=== PATIENT | female | born 1960 | race Caucasian/White ===

== ENCOUNTER 2020-07-26 11:56 | Outpatient (CLI) | payer OTHER, SELFPAY ==
--- NOTE | ~2020-07-26 | XR_ITS ---
XR wrist RT min 3V DATE: 07/26/2020 12:22 INDICATION: Bilateral wrist pain. Osteoarthritis. TECHNIQUE: 4 views COMPARISON: None FINDINGS: There is narrowing of the triscaphe joint. There is prominent narrowing and spurring at the first carpometacarpal joint. There is osteoarthritic change as well at the interphalangeal joint of the first digit Diffuse osteopenia. No fracture, dislocation, periosteal reaction or bone destruction. No chondrocalcinosis. No erosive c hanges are noted. IMPRESSION: Osteoarthritis, most prominent at the first carpal metacarpal joint, also close involving triscaphe and first digit interphalangeal joints Reviewed, dictated and finalized at location A. TITATIVE ANALYST IMPRESSION: Osteoarthritis, most prominent at the first carpal metacarpal joint , also close involving triscaphe and first digit interphalangeal joints
--- NOTE | ~2020-07-26 | XR_ITS ---
XR wrist LT min 3V DATE: 07/26/2020 12:22 INDICATION: Bilateral wrist pain. Osteoarthritis. TECHNIQUE: 4 views COMPARISON: None FINDINGS: There is diffuse osteopenia. There is severe joint space narrowing and spurring at the first carpometacarpal joint consistent with severe osteoarthritis. No fracture, dislocation, periosteal reaction or bone destruction or erosive change or chondrocalcino sis is detected. IMPRESSION: Severe osteoarthritis at the first carpal metacarpal joint Osteopenia Reviewed, dictated and finalized at location A. 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
== END 2020-07-26 11:57 | disposition home or self-care (01) ==
LOC: ANHIMG 11:59
PROVIDERS: PCP Internal Medicine; Visit Provider Plastic Surgery
DX: M19.031 Primary osteoarthritis, right wrist (principal); M19.032 Primary osteoarthritis, left wrist; M85.842 Other specified disorders of bone density and structure, left hand
CPT/HCPCS: 73110

== ENCOUNTER 2020-09-02 08:22 | Outpatient (CLI) | payer OTHER, SELFPAY ==
--- NOTE | 2020-09-02 08:27 | ECG_ITS ---
Measurements Intervals Desmet Rate: 73 P: 41 AR: 161 QRS: -28 QRSD: 89 T: 18 QT: 394 QTc: 435 Interpretive Statements SINUS RHYTHM BORDERLINE R WAVE PROGRESSION, ANTERIOR LEADS BORDERLINE T WAVE ABNORMALITY- INFERIOR LEADS BASELINE ARTIFACT- I, III, AVR, AVL, AVF, V1-V6 BORDERLINE ECG Electronically Signed On 09-02-2020 8:41:03 CDT by Raymundo Serrato D.O.
[2020-09-02 08:59] LABS: Anion Gap 9 mmol/L (8-16); Blood Urea Nitrogen 15 mg/dL (7-17); Calcium 9.4 mg/dL (8.4-10.2); Carbon Dioxide 30 mmol/L (22-30); Chloride 104 mmol/L (98-107); Estimated Glomerular Filt Rate 57; Glucose 208 mg/dL (65-105); Potassium 3.8 mmol/L (3.4-5.0); Sodium 143 mmol/L (137-145)
== END 2020-09-02 08:23 | disposition home or self-care (01) ==
LOC: ANHSURGERY 08:25
PROVIDERS: Anesthesiology; PCP Internal Medicine; Visit Provider Plastic Surgery
DX: Z01.818 Encounter for other preprocedural examination (principal); I10 Essential (primary) hypertension; Z51.81 Encounter for therapeutic drug level monitoring; Z79.899 Other long term (current) drug therapy
CPT/HCPCS: 36415; 80048; 93005

== ENCOUNTER → 2020-09-06 00:20 | Outpatient (CLI) | payer OTHER, SELFPAY ==
[2020-09-06 19:29] LABS: SARS-CoV-2 RNA PCR Negative
== END ==
PROVIDERS: PCP Internal Medicine; Visit Provider Plastic Surgery
DX: Z01.812 Encounter for preprocedural laboratory examination (principal); Z20.822 Contact with and (suspected) exposure to COVID-19
CPT/HCPCS: C9803; U0003; U0005

== ENCOUNTER 2020-09-09 00:18 | Day surgery (SDC) | payer OTHER, SELFPAY ==
[2020-08-25 15:18] VITALS: BMI 30.2
--- NOTE | 2020-09-08 14:35 | WPDANESEPPF ---
Anes - Initial Pre Proc Eval Procedure: Operation Date: 09/09/20 07:30 Proposed Procedures p Right Trapezium Resection Arthroplasty with Arthrex Internal Brace - Ga Hyde MD Date/Time: 09/08/20 14:35 Surgeon: Ga Hyde MD Pre Op Diagnosis: right basal joint OA Patient Data Age: 60 Gender: F Height: 5 ft 9 in Weight: 93 kg Allergies Allergy/AdvReac Type Severity Reaction Status Date / Time No Known Allergies Allergy Unknown NONE Verified 09/09/20 06:26 Home Medications Medication Instructions Recorded Confirmed Type canagliflozin 100 mg tablet 100 mg PO HS 06/10/19 09/09/20 History metformin 1,000 mg tablet 1,000 mg PO BID 06/10/19 09/09/20 History rosuvastatin 5 mg tablet 5 mg PO HS 06/10/19 09/09/20 History ergocalciferol (vitamin D2) 1,250 1,250 mcg PO WEEKLY #13 cap 05/02/20 09/09/20 Rx mcg (50,000 unit) capsule gabapentin 300 mg PO HS 08/25/20 09/09/20 History losartan-hydrochlorothiazide 1 tablet PO HS 08/25/20 09/09/20 History multivitamin 1 tablet PO HS 08/25/20 09/09/20 History lorazepam 0.5 mg tablet 0.5 mg PO BID PRN #30 tablet 09/03/20 09/09/20 Rx Patient hx anesthesia problems: none Family hx anesthesia problems: none PMFSH Past Medical History Medical History Anxiety Diabetes Essential (primary) hypertension Obesity (BMI 30.0-34.9) Pure hypercholesterolemia, unspecified Thumb pain Type 2 diabetes mellitus without complications Family History Family History Father Patient's father is in good health Mother Family history of osteoporosis Depression Family history of cataracts Asthma Family history of chronic obstructive pulmonary disease Sibling Depression Family history of bipolar disorder Family history of diabetes mellitus in first degree relative Other Cerebrovascular accident Diabetes mellitus Family history of alcoholism Family history of arthritis Family history of cardiovascular disease Hypertension Social History Social History Years smoked: 3 Smoking status: Former smoker Tobacco type: cigarettes Second hand tobacco smoke exposure: No Smoking end date: 06/04/80 Alcohol intake: never Substance use: never Substance use type: does not use Living arrangements: with family Spiritual care concerns: No Anes - Eval Final PreProcedure Day of Procedure 09/08/20 14:35 Patient weight: overweight Heart: regular rate and rhythm Lungs: clear to auscultation Airway: Mallampati scale class II Neurological: alert and oriented Last oral intake: >/= 8 hours ASA classification: III Emergent: no Anesthetic plan: proceed Anesthesia type and monitoring: general LMA and standard monitoring Informed Consent: The patient's anesthetic plan and its attendant risks and benefits were discussed with the patient/family/POA. Questions were solicited and answers provided to the satisfaction of the patient/family/POA.
[2020-09-09] VITALS (8 sets, daily range): BP systolic 95–109; BP diastolic 58–71; PULSE 70–75; RESP 10–16; TEMP 35.9–36.3; O2SAT 92–97
--- NOTE | ~2020-09-09 | XR_ITS ---
EXAMINATION: surgery orthopedic EXAM DATE: 09/09/2020 09:36 INDICATION: Advanced right 1st carpometacarpal osteoarthritis. Right trapezium resection. TECHNIQUE: Fluoroscopy used during right trapezium resection performed by Dr. Ga Hyde MD. Radiologist was not present for the imaging or procedure. Total fluoroscopic time of 0.4 minutes. A total of 3 images obtained for the exam. The DAP for this procedure was 0.006 mGym2. FINDINGS: Images demonstrate right trapezium resection. Correlate with procedure note. IMPRESSION: Fluoroscopy used during right trapezium resection. Reviewed, dictated and finalized at location A.
[2020-09-09] MEDS: LACTATED RINGERS 1,000 ML 30 ML IV CONT ×2 (06:40→09:28)
--- NOTE | 2020-09-09 06:43 | WPDANESEPP ---
Anes - Eval Pre Procedure Procedure: Operation Date: 09/09/20 07:30 Proposed Procedures p Right Trapezium Resection Arthroplasty with Arthrex Internal Brace - Ga Hyde MD Date/Time: 09/09/20 06:43 Pre Op Diagnosis: right basal joint OA Patient Data Age: 60 Gender: F Height: 5 ft 9 in Weight: 93 kg Allergies Allergy/AdvReac Type Severity Reaction Status Date / Time No Known Allergies Allergy Unknown NONE Verified 09/09/20 06:26 Home Medications Medication Instructions Recorded Confirmed Type canagliflozin 100 mg tablet 100 mg PO HS 06/10/19 09/09/20 History metformin 1,000 mg tablet 1,000 mg PO BID 06/10/19 09/09/20 History rosuvastatin 5 mg tablet 5 mg PO HS 06/10/19 09/09/20 History ergocalciferol (vitamin D2) 1,250 1,250 mcg PO WEEKLY #13 cap 05/02/20 09/09/20 Rx mcg (50,000 unit) capsule gabapentin 300 mg PO HS 08/25/20 09/09/20 History losartan-hydrochlorothiazide 1 tablet PO HS 08/25/20 09/09/20 History multivitamin 1 tablet PO HS 08/25/20 09/09/20 History lorazepam 0.5 mg tablet 0.5 mg PO BID PRN #30 tablet 09/03/20 09/09/20 Rx Patient hx anesthesia problems: none Family hx anesthesia problems: none PMFSH Past Medical History Medical History Anxiety Diabetes Essential (primary) hypertension Obesity (BMI 30.0-34.9) Pure hypercholesterolemia, unspecified Thumb pain Type 2 diabetes mellitus without complications Family History Family History Father Patient's father is in good health Mother Family history of osteoporosis Depression Family history of cataracts Asthma Family history of chronic obstructive pulmonary disease Sibling Depression Family history of bipolar disorder Family history of diabetes mellitus in first degree relative Other Cerebrovascular accident Diabetes mellitus Family history of alcoholism Family history of arthritis Family history of cardiovascular disease Hypertension Social History Social History Years smoked: 3 Smoking status: Former smoker Tobacco type: cigarettes Second hand tobacco smoke exposure: No Smoking end date: 06/04/80 Alcohol intake: never Substance use: never Substance use type: does not use Living arrangements: with family Spiritual care concerns: No Comments VR 73 SINUS RHYTHM BORDERLINE R WAVE PROGRESSION, ANTERIOR LEADS BORDERLINE T WAVE ABNORMALITY- INFERIOR LEADS BASELINE ARTIFACT- I, III, AVR, AVL, AVF, V1-V6 BORDERLINE ECG Exam Day of Procedure 09/09/20 06:43
[2020-09-09 06:48] LABS: Glucose Point of Care 143 (65-105)
--- NOTE | 2020-09-09 07:15 | WPDHPUPDATE1 ---
History and Physical Update Update Date/Time: 09/09/20 07:15 History and Physical has been reviewed, including an updated exam of the patient. There are NO changes in the patient's condition. Risks, benefits, and alternatives have been discussed and questions answered. Patient agrees to proceed with procedure.
[2020-09-09] MEDS: ceFAZolin 2 GM/D5W 50 ML 2 GM/50 ML BAG IVPB (07:29)
[2020-09-09] MEDS: LIDO 1%/EPINEPHRINE/PF 1:200,000 30 ML VIAL XX (09:10)
[2020-09-09] MEDS: BUPIVACAINE/EPINEPHRINE 0.5% 30 ML VIAL INFILTRATE (09:11)
--- NOTE | 2020-09-09 09:51 | P.OPB_ITS ---
Procedure Note - Brief Procedure Note - Brief Date of procedure: 09/09/20 Pre-op diagnosis: right basal joint OA Post-op diagnosis: same Procedure performed: Trapezium resection arthroplasty with InternalBrace. Implants: InternalBrace. Anesthesia: GETA Surgeon: Ga Hyde MD National Business Director: Mark Estimated blood loss (mL): 5 Tourniquet time (min): 74 Drains: No Packing: No Pathology: none sent Complications: No immediate complications Condition: stable Disposition: PACU
--- NOTE | 2020-09-09 09:54 | P.OP_ITS ---
Procedure Note - Detailed Date of procedure: 09/09/20 Pre-op diagnosis: right basal joint OA Post-op diagnosis: same Procedure performed: Right trapezium resection arthroplasty with Arthrex InternalBrace. Description of procedure: The right thumb was marked as the patient waited in the holding area. She was taken to the operating room and placed supine on the operating table. A time-out was held and confirmed. She was given general endo tracheal anesthesia. The right upper extremity was prepped and draped in the usual fashion. The site on the thumb was marked for the incision and locally infiltrated with 1% lidocaine with epinephrine. The extremity was exsanguinated and the tourniquet inflated to 250 mmHg. The incision was made as marked and dissection was carried through the subcutaneous tissue. The large branch of the superficial branch of the radial nerve was identified this was retained with a quarter-inch Brian drain out of harm's way. The joint capsule was incised with a knife the extensor pollicis brevis and the abductor pollicis longus. The capsule was entered and the margins of the metacarpal were exposed. The trapezium was exposed with sharp dissection as well. It was then removed piecemeal with rongeur.. C-arm images were taken to document the resection. The Arthrex internal brace kit was brought onto the operating table. The anchor sites were drilled with the C-wire and the auger. The anchor at the metacarpal was applied 1st without difficulty. Second anchor at the radial base of the 1st metacarpal was applied with the thumb abducted and distracted.. There were no complications performing this. The capsule was repaired with 3-0 Ethibond the tourniquet was released there was minimal bleeding. The Brian drain was removed and the skin was closed with a running intradermal 3-0 Monocryl suture. A thumb spica splint was applied. The patient is being discharged home with instructions in wound care and follow-up. She has a prescription for hydrocodone . Anesthesia: GETA Surgeon: Ga Hyde MD Field Pipelines Supervisor: Mark Estimated blood loss (mL): 5 Tourniquet time (min): 74 Drains: No Packing: No Pathology: none sent Complications: No immediate complications Condition: stable Disposition: PACU
[2020-09-09 09:55] LABS: Glucose Point of Care 139 (65-105)
[2020-09-09] MEDS: oxyCODONE HCL (*CRX) 5 MG TAB IR PO (10:46)
== END 2020-09-09 11:35 | disposition home or self-care (01) ==
PROVIDERS: PCP Internal Medicine; Visit Provider Plastic Surgery
PROC: (CPT 25447; principal; 2020-09-09 07:30)
DX: M18.11 Unilateral primary osteoarthritis of first carpometacarpal joint, right hand (principal); E11.9 Type 2 diabetes mellitus without complications; I10 Essential (primary) hypertension; E78.00 Pure hypercholesterolemia, unspecified; F41.9 Anxiety disorder, unspecified; E66.9 Obesity, unspecified; Z68.29 Body mass index [BMI] 29.0-29.9, adult; Z79.84 Long term (current) use of oral hypoglycemic drugs; Z87.891 Personal history of nicotine dependence
CPT/HCPCS: 25447; 36415; 80048; 82948; 93005; A9270; C9803; J0690; J1100; J2250; J2405; J2704; J3010; J7120; U0003; U0005

== ENCOUNTER 2020-10-21 09:00 | Outpatient (RCR) | payer OTHER, SELFPAY ==
--- NOTE | 2020-09-24 10:13 | OTOPEVAL ---
OCCUPATIONAL THERAPY INITIAL EVALUATION REPORT 09/24/20 Thank you for referring Parul Farmer to [facility].? The patient is scheduled to be seen for therapy?2x/week for 4 weeks. Please review, sign, date and return this plan of care ROBERTO. I agree with and certify that the following plan of care is medically necessary. Referring Physician Date Referring Provider: Ga Hyde MD *OT Outpatient Evaluation Start: 09/24/20 09:13 Therapy Assessment Status Assessment Status Assessment Status Evaluation Outpatient Past Medical History Past Medical History Source of Past Medical History Recalled from Previous Visit, Confirmed with Patient/Family Neurological History Hx Neurological Disorders No Significant History Cardiovascular History Hx Hypercholesterolemia Yes Hx Hypertension Yes Respiratory History Hx Respiratory Disorders No Significant History Gastrointestinal History Hx Cholecystectomy Yes Genitourinary History Hx Genitourinary Disorders No Significant History Musculoskeletal History Hx Arthritis Yes: OSTEOARTHRITIS BILAT THUMBS Hx Other Musculoskeletal Disorders Yes: RT THUMB PAIN CURRENTLY Hematological History Hx Hematological Disorders No Significant History Endocrine History Hx Diabetes Yes HEENT History Hx HEENT Disorders No Significant History Integumentary History Hx Skin Disorders No Significant History Reproductive History Hx Hysterectomy Yes Psychosocial History Hx Psychiatric Disorders No Significant History Pain History History of Any Previous or Ongoing No Significant History Instance of Pain Anesthesia History Hx Anesthesia Reactions No Significant History Evaluation Information Problem Diagnosis (R) trapezium resection arthroplasty with Internal Brace Onset 09/09/20 Cause CMC OA Subjective Information Patient has been wearing the Query Text:As Reported By Patient/ splint they donned on her Family after surgery since her surgery. 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 She has been having help from her to clasp her bra, otherwise she has returned to being independent with ADLs. He is completing heavier household work at this time. 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
--- NOTE | 2020-10-21 09:29 | OTOPEVAL ---
OCCUPATIONAL THERAPY RE-EVALUATION AND D/C SUMMARY 10/21/20 Patient presents today for re-evaluation after 4 weeks of therapy. Initially she was scheduled for 2x/week and was dropped down to 1x/week as she was making such excellent progress. She had no pain throughout therapy and improved back to functional ROM very quickly. She is currently independent with special education itinerant teacher, pinch, and wrist strengthening HEP, has returned to normal functional use of the hand, and is ready for discharge. Thank you for referring Parul Farmer to [facility].? Please review, sign, date and return this D/C Summary ROBERTO. I agree with and certify that the following plan of care is medically necessary. Referring Physician Date Referring Provider: Ga Hyde MD *OT Outpatient Re-Evaluation Start: 09/24/20 09:13 Evaluation Information Problem Diagnosis (R) trapezium resection arthroplasty with Internal Brace Onset 09/09/20 Cause CMC OA Subjective Information Patient reports returning to Query Text:As Reported By Patient/ normal functional use of the Family right hand for ADLs and household tasks. She no longer has her husbands help with heavier cleaning tasks. She has been completing special education itinerant teacher, pinch, and wrist strengthening without difficulties. 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 Pain Assessment Timing of Pain Assessment Timing of Pain Assessment Assessment Self Report Self Report Pain Level 0 Pain Score Pain Score 0: Self Report Additional Pain Score Comments No pain. Has had no pain since surgery. Upper Extremity Range of Motion Wrist Range of Motion Right Reason Not Measured WNL/Right Finger Range of Motion Right Reason Not Measured WNL/Right Thumb Range of Motion Right Thumb MCP Flexion - Active 45 Thumb IP Flexion - Active 75 Thumb CMC Radial Abduction - Active 50 Thumb CMC Palmar Abduction - Active 55 Opposition to 5th Digit Base 0 Thumb Range of Motion Comments MCP flexion improved from 40* IP flexion improved from 75* CMC radial abd improved from 40* CMC palmar abd improved from 55* Hand Energy Systems Engineer/Pinch Strength Assessment Hand Right Energy Systems Engineer Strength (lbs) 55.33 Lateral Pinch Strength (lbs) 4 Palmar Pinch Strength (lbs) 3.66 Tip Pinch Strength (lbs) 4 Hand Energy Systems Engineer/Pinch Strength Comments Patient is independent with special education itinerant teacher/pinch strengthening HEP. OT Clinical Summary OT Clinical Summary Patient presents today for re-
== END 2020-10-21 11:53 | disposition home or self-care (01) ==
LOC: ANHOT 09:00
PROVIDERS: PCP Internal Medicine; Referring Provider Plastic Surgery; Visit Provider Plastic Surgery
DX: Z48.89 Encounter for other specified surgical aftercare (principal)
CPT/HCPCS: 97018; 97110; 97140; 97165

== ENCOUNTER 2021-02-25 11:30 | Outpatient (CLI) | payer OTHER, SELFPAY ==
[2021-02-25 12:06] LABS: Anion Gap 11 mmol/L (8-16); Blood Urea Nitrogen 12 mg/dL (7-17); Calcium 9.6 mg/dL (8.4-10.2); Carbon Dioxide 26 mmol/L (22-30); Chloride 101 mmol/L (98-107); Estimated Glomerular Filt Rate > 60; Glucose 107 mg/dL (65-110); Potassium 3.8 mmol/L (3.4-5.0); Sodium 138 mmol/L (137-145)
== END 2021-02-25 11:31 | disposition home or self-care (01) ==
LOC: ANHSURGERY 11:33
PROVIDERS: Anesthesiology; PCP Internal Medicine; Visit Provider Plastic Surgery
DX: E11.9 Type 2 diabetes mellitus without complications (principal); Z01.818 Encounter for other preprocedural examination
CPT/HCPCS: 36415; 80048

== ENCOUNTER 2021-03-02 00:25 | Day surgery (SDC) | payer OTHER, SELFPAY ==
[2021-02-22 11:17] VITALS: BMI 29.5
[2021-03-02] VITALS (11 sets, daily range): BP systolic 92–111; BP diastolic 61–72; PULSE 61–82; RESP 12–16; TEMP 36.1; O2SAT 95–100; BMI 29.2
--- NOTE | ~2021-03-02 | XR_ITS ---
EXAMINATION: XR surgery orthopedic DATE: 03/02/2021 12:53 INDICATION: Left thumb trapezium resection arthroplasty TECHNIQUE: 2 fluoroscopic images of the left wrist and carpus were obtained during procedure performe d by Dr. Hyde. Radiologist was not present for the imaging or procedure. The amount of fluoroscopy t renee used during this procedure was 0.4 minutes. COMPARISON: Left wrist radiographs dated 07/26/2020 FINDINGS: Images demonstrate resection of the trapezium for first carpal carpal suspension arthroplas ty. On the second image there is expected gas at the resection bed with distal retraction of the thum b. A curvilinear opacity potentially for arthritics internal bracing can be seen projecting over the base of the first metacarpal. No fractures. Remaining joint spaces appear relatively preserved. IMPRESSION: 1. Fluoroscopy utilized during a left thumb trapezium resection arthroplasty. See procedure note for further detail. Reviewed, dictated and finalized at location A. IMPRESSION: 1. Fluoroscopy utilized during a left thumb trapezium resection arthroplasty. S ee procedure note for further detail.
--- NOTE | 2021-03-02 07:02 | WPDHPUPDATE1 ---
History and Physical Update Update Date/Time: 03/02/21 07:02 History and Physical has been reviewed, including an updated exam of the patient. There are NO changes in the patient's condition. Risks, benefits, and alternatives have been discussed and questions answered. Patient agrees to proceed with procedure.
--- NOTE | 2021-03-02 09:38 | WPDANESEPPF ---
Anes - Initial Pre Proc Eval Procedure: Operation Date: 03/02/21 11:15 Proposed Procedures p Left Trapezium Resection Arthroplasty with Arthrex Internal Brace - Ga Hyde MD Date/Time: 03/02/21 09:38 Surgeon: Ga Hyde MD Pre Op Diagnosis: Left Basal Joint Osteoarthritis Patient Data Age: 60 Gender: F Height: 1.75 m Weight: 90.72 kg Allergies Allergy/AdvReac Type Severity Reaction Status Date / Time No Known Allergies Allergy Unknown NONE Verified 02/22/21 11:15 Home Medications Medication Instructions Recorded Confirmed Type metformin 1,000 mg tablet 1,000 mg PO BID 06/10/19 02/22/21 History rosuvastatin 5 mg tablet 5 mg PO HS 06/10/19 02/22/21 History losartan-hydrochlorothiazide 1 tablet PO HS 08/25/20 02/22/21 History multivitamin 1 tablet PO HS 08/25/20 02/22/21 History ergocalciferol (vitamin D2) 1,250 1,250 mcg PO WEEKLY #13 cap 11/25/20 02/22/21 Rx mcg (50,000 unit) capsule gabapentin 300 mg capsule 300 mg PO HS #90 cap 12/11/20 02/22/21 Rx sertraline 25 mg PO HS 02/22/21 02/22/21 History lorazepam 0.5 mg tablet 0.5 mg PO BID PRN #30 tablet 02/24/21 Rx Patient hx anesthesia problems: none Family hx anesthesia problems: none Results Review: All pre-operative results and documents have been reviewed as part of the pre-operative evaluation. [facility] Past Medical History Medical History Anxiety Diabetes Essential (primary) hypertension Obesity (BMI 30.0-34.9) Pure hypercholesterolemia, unspecified Thumb pain Type 2 diabetes mellitus without complications Family History Family History Father Patient's father is in good health Mother Family history of osteoporosis Depression Family history of cataracts Asthma Family history of chronic obstructive pulmonary disease Sibling Depression Family history of bipolar disorder Family history of diabetes mellitus in first degree relative Other Cerebrovascular accident Diabetes mellitus Family history of alcoholism Family history of arthritis Family history of cardiovascular disease Hypertension Social History Social History Years smoked: 3 Smoking status: Former smoker Tobacco type: cigarettes Second hand tobacco smoke exposure: No Smoking end date: 06/04/80 Alcohol intake: never Substance use: never Substance use type: does not use Living arrangements: with family Spiritual care concerns: No Anes - Eval Final PreProcedure Day of Procedure 03/02/21 09:38 Patient weight: overweight Heart: regular rate and rhythm Lungs: clear to auscultation Airway: Mallampati scale class II Neurological: alert and oriented Last oral intake: >/= 8 hours ASA classification: III Emergent: no Anesthetic plan: proceed Anesthesia type and monitoring: general LMA and standard monitoring Results Review: All pre-operative results and documents have been reviewed as part of the pre-operative evaluation. Informed Consent: The patient's anesthetic plan and its attendant risks and benefits were discussed with the patient/family/POA. Questions were solicited and answers provided to the satisfaction of the patient/family/POA.
[2021-03-02] MEDS: LACTATED RINGERS 1,000 ML 30 ML IV CONT ×2 (09:50→13:10)
[2021-03-02] MEDS: ACETAMINOPHEN 500 MG TABLET 1000 MG PO (09:57)
[2021-03-02 10:07] LABS: Glucose Point of Care 109 mg/dl (65-105)
[2021-03-02] MEDS: ceFAZolin 2 GM/D5W 50 ML 2 GM/50 ML BAG IVPB (11:18)
[2021-03-02] MEDS: LIDO 1%/EPINEPHRINE 1:100,000 50 ML VIAL 10 ML INFILTRATE (11:44)
[2021-03-02 13:14] LABS: Glucose Point of Care 146 mg/dl (65-105)
--- NOTE | 2021-03-02 13:23 | W.PM.PROC2 ---
Procedure Note - Detailed Date of Procedure 03/02/21 Pre-op Diagnosis Left Basal Joint Osteoarthritis Post-op Diagnosis same Procedure Performed Left trapezium resection arthroplasty with Arthrex internal brace Surgeon Ga Hyde MD Project Development Coordinator Marcus Anesthesia general Description of Procedure The left basal joint site was marked on the patient's hand in the holding area. She was then taken to the operating room where she was placed supine on the operating table. A time-out was held confirmed. She was given general anesthesia and the left upper extremity was prepped and draped in the usual fashion. The site was marked for the incision and locally infiltrated with 1% lidocaine with epinephrine. The tourniquet was inflated to 250 mmHg. The incision was made as marked curving palmar at the basal joint. Skin flaps were carefully elevated. The large cutaneous nerve was retained palmarly with a vessel loop. The interspace between the EPL and the EPB was incised across the trapezial metacarpal joint. The trapezium was dissected with sharp and blunt dissection the radial artery branch was not violated. The trapezium was divided with an osteotome and taken out piecemeal with a rongeur. The flexor carpi radialis was not harmed. The image intensifier provided images indicating adequate resection of the trapezium. The K-wire from the Arthrex set was inserted diagonally across the base of the 2nd metacarpal. This was imaged and appeared to be satisfactory. The drill guide was placed over that and the swivel lock opening made. The swivel lock was placed in that hole and was stable The radial base of the 1st metacarpal was exposed and a 2nd swivel lock hole was made through the thumb was appropriately position and the swivel lock placed over the suture tape. This was also stable. The thumb appeared to be in excellent position. C-arm images were made with the thumb distally extracted and Proximally compressed. The subcutaneous tissue was repaired with inter erupted 4-0 Vicryl suture and the skin was closed with a running intradermal 4-0 Vicryl. The site was not really infiltrated Marcaine. She had been given 1000 mg a acetaminophen preop orally and 2 g of IV Ancef the soft bandage with thumb spica splint was applied. She is discharged from the operating room stable condition she will have a prescription for hydrocodone 5/325 number 10 Implants Arthrex swivel lock and suture tape Estimated Blood Loss 0 Tourniquet Time 60 Drains No Packing No Pathology none sent Complications No immediate complications Condition stable Disposition PACU
[2021-03-02] MEDS: fentaNYL CITRATE INJ (*CRX) 100 MCG/2 ML VIAL 25 MCG IV PUSH ×4 (13:36→14:10)
== END 2021-03-02 15:14 | disposition home or self-care (01) ==
PROVIDERS: PCP Internal Medicine; Visit Provider Plastic Surgery
PROC: (CPT 25447; principal; 2021-03-02 11:15)
DX: M18.12 Unilateral primary osteoarthritis of first carpometacarpal joint, left hand (principal); E11.9 Type 2 diabetes mellitus without complications; I10 Essential (primary) hypertension; E78.00 Pure hypercholesterolemia, unspecified; F41.9 Anxiety disorder, unspecified; Z79.84 Long term (current) use of oral hypoglycemic drugs; Z87.891 Personal history of nicotine dependence
CPT/HCPCS: 25447; 36415; 80048; 82948; A9270; C1713; J0690; J1100; J2250; J2405; J2704; J3010; J7120

== ENCOUNTER 2021-04-06 07:30 | Outpatient (RCR) | payer OTHER, SELFPAY ==
--- NOTE | 2021-03-10 08:35 | OTOPEVAL ---
OCCUPATONAL THERAPY INITIAL EVALUATION REPORT 03/10/21 Thank you for referring Parul Farmer to [facility] [place] [facility] [place] The patient is scheduled to be seen for therapy? 1x/week for 5 weeks. Please review, sign, date and return this plan of care ROBERTO. I agree with and certify that the following plan of care is medically necessary. Referring Physician Date Referring Provider: Ga Hyde MD *OT Outpatient Evaluation Start: 03/10/21 07:29 Therapy Assessment Status Assessment Status Assessment Status Evaluation Outpatient Past Medical History Neurological History Hx Neurological Disorders No Significant History Cardiovascular History Hx Hypercholesterolemia Yes Hx Hypertension Yes Respiratory History Hx Respiratory Disorders No Significant History Gastrointestinal History Hx Cholecystectomy Yes Genitourinary History Hx Genitourinary Disorders No Significant History Musculoskeletal History Hx Orthopedic Surgery Yes: RT THUMB Hematological History Hx Hematological Disorders No Significant History Endocrine History Hx Diabetes Yes HEENT History Hx HEENT Disorders No Significant History Integumentary History Hx Skin Disorders No Significant History Psychosocial History Hx Psychiatric Disorders No Significant History Pain History History of Any Previous or Ongoing No Significant History Instance of Pain Anesthesia History Hx Anesthesia Reactions No Significant History Other History Hx Other Surgeries Yes: LIPOMA X2 REMOVED FROM NECK Evaluation Information Problem Diagnosis s/p left trapezium resection with Arthrex Internal brace Onset 03/02/21 Subjective Information Patient reports her hand has Query Text:As Reported By Patient/ had minimal to no pain since Family surgery. She has been unable to complete any pinching/ gripping tasks such as clasping her bra since surgery . Her helps her as needed. She is still working and driving without difficulty . 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
--- NOTE | 2021-03-30 09:37 | PCOTNOTE ---
Patient called & cancelled scheduled appointment this date.
--- NOTE | 2021-04-06 08:06 | OTOPEVAL ---
OCCUPATIONAL THERAPY RE-EVALUATION AND DISCHARGE SUMMARY 04/06/21 Parul presents today, 5 weeks following left CMC arthroplasty. She has returned to normal ROM and has no pain with use. She is independent with strengthening and ready for discharge. D/C today with goals met. Thank you for referring Parul Farmer to [facility] [place]. Please review, sign, date and return this D/C Note ROBERTO. I agree with and certify that the following plan of care is medically necessary. Referring Physician Date Referring Provider: Ga Hyde MD *OT Outpatient Re-Evaluation Start: 03/10/21 07:29 Problem Diagnosis s/p left trapezium resection with Arthrex Internal brace Onset 03/02/21 Subjective Information Patient reports she is back to Query Text:As Reported By Patient/ normal functioning with the Family right hand. Reports no functional limitations and no pain. Pain Assessment Timing of Pain Assessment Timing of Pain Assessment Re-assessment Pain Scale Pain Scale Used Numeric (1 - 10) Self Report Pain Assessment Left Hand(s) Reported Pain Level 0 Lowest Pain Intensity 0 Greatest Pain Intensity 0 Pain Score Pain Score 0: Self Report Upper Extremity Range of Motion Wrist Range of Motion Left Wrist Flexion - Active 75 Wrist Extension - Active 75 Wrist Radial Deviation - Active 20 Wrist Ulnar Deviation - Active 35 Finger Range of Motion Left Reason Not Measured WNL/Left Thumb Range of Motion Left Thumb MCP Flexion - Active 45 Thumb IP Flexion - Active 60 Opposition to 5th Digit Base 0 Thumb Range of Motion Comments Thumb ROM has returned to normal limits. 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 OT Clinical Summary Clinical Summary Protocol: OTEVCODES OT Clinical Summary Parul presents today, 5 weeks following left CMC arthroplasty. She has returned to normal ROM and has no pain with use. She is independent with strengthening and ready for discharge. D/C today with
== END 2021-04-06 12:00 | disposition home or self-care (01) ==
LOC: ANHOT 07:30
PROVIDERS: PCP Internal Medicine; Visit Provider Plastic Surgery
DX: Z48.89 Encounter for other specified surgical aftercare (principal)
CPT/HCPCS: 97110; 97165; L3806

== ENCOUNTER → 2022-01-05 15:27 | Outpatient (CLI) | payer OTHER, SELFPAY ==
--- NOTE | ~2022-01-05 | CT_ITS ---
EXAMINATION: CT brain wo con DATE: 01/05/2022 15:41 INDICATION: Vertigo, memory loss, lack of coordination. TECHNIQUE: Computed tomography (CT) of the head was performed without intravenous contrast. The mA wa s adjusted according to patient size. Iterative reconstruction technique was employed. Exam dose: 59 9.57 mGy-cm total exam DLP. COMPARISON: None FINDINGS: Cerebral atherosclerosis is noted including some calcification of the carotid siphon internal investigator al carotid arteries and prominent left vertebral artery calcification. Mild bilateral basal ganglia calcification. There is nonspecific diminished attenuation of the cerebral white matter, likely due to chronic small vessel ischemic changes. No intracranial mass lesion or hemorrhage or cerebrovascular accident is detected. No midline shift o r mass effect. Normal ventricular size. No subdural or epidural hematoma. No fracture or bone destruction of the cranial vault. The paranasal sinuses and mastoid air cells are normally developed and aerated. IMPRESSION: Cerebral atherosclerosis and chronic small vessel ischemic changes of the cerebral white matter No other significant intracranial abnormality Reviewed, dictated and finalized at [facility]. Reviewed, dictated and finalized at [facility].
== END ==
PROVIDERS: PCP Internal Medicine; Visit Provider Internal Medicine
DX: R41.3 Other amnesia (principal); R26.9 Unspecified abnormalities of gait and mobility; I67.2 Cerebral atherosclerosis
CPT/HCPCS: 70450

== ENCOUNTER 2022-01-18 13:49 | Outpatient (CLI) | payer OTHER, SELFPAY ==
[2022-01-18 14:57] LABS: Appearance Urine Slightly Cloudy (Clear); Bilirubin Urine Negative (Negative); Color Urine Orange (Yellow); Glucose Urine UA Trace mg/dL (Negative); Ketones Urine Negative (Negative); Leukocyte Esterase Ur 3+ LEU/UL (Negative); Nitrate Urine Positive (Negative); Protein Urine 1+ mg/dL (Negative); pH Urine 5.5 (5.0-9.0)
[2022-01-18 15:01] LABS: Add Urine Microscopic? YES; Blood Urine Trace-Intact (Negative)
[2022-01-18 15:10] LABS: Bacteria Urine Trace /hpf; Mucus Urine Rare /lpf; RBC Urine 0-2 /hpf (0-2); Squamous Epithelial Cell Urine Occasional /hpf (Few); WBC Clumps Urine Present /HPF; WBC Urine >75 /hpf
== END 2022-01-18 13:50 | disposition home or self-care (01) ==
LOC: ANHLAB 13:50
PROVIDERS: PCP Internal Medicine; Visit Provider Internal Medicine
DX: R30.0 Dysuria (principal)
CPT/HCPCS: 81001; 87077; 87086; 87186

== ENCOUNTER 2022-01-31 07:27 | Outpatient (CLI) | payer OTHER, SELFPAY ==
--- NOTE | 2022-02-28 16:51 | WPDHOMESLEEP ---
Sleep Study - Home Unattended Date of Study: 01/31/22 Ordering Provider: Milton Georges DO Interpreting Provider: Kim Corona DO Home Sleep Study Type: Watch PAT Height: 1.78 m Weight: 90.718 kg Body Mass Index: 28.7 Neck Circumference (inches): 14 Breaks: 2 Reason for Sleep Study Unrefreshing sleep, multiple nighttime awakenings Sleep History The patient is a 61-year-old female with hypertension, hyperlipidemia, diabetes and anxiety that had a sleep study ordered by her primary care physician for evaluation of sleep apnea. She rarely awakens from sleep short of breath. She occasionally awakens at night with heartburn, belching or cough. She frequently snores loud enough that others complain he constantly has trouble sleeping when she has a cold. She rarely wakes up gasping for air throughout the night. She rarely has breathing problems at night observed by herself or others. He occasionally sweats excessively at night. She rarely has heart palpitations or irregular heartbeats during the night. He occasionally falls asleep during the day but never while driving. She denies cataplexy. She denies having trouble at school or work due to sleepiness. She occasionally feels unable to move while waking up or falling asleep. She frequently experiences vivid dreamlike scenes upon awakening or falling asleep. He rarely feels afraid of going to sleep. She rarely has nightmares. He rarely remembers her dreams. She constantly has thoughts racing through her mind. She occasionally feels sad or depressed. She constantly has anxiety. She frequently has muscular tension. She frequently notices parts of her body jerk. She frequently kicks during the night. She constantly has crawling and aching feelings in her legs as well as leg pain during night. She constantly grinds her teeth during sleep and frequently awakens with morning jaw pain. She occasionally bothered by pain during the day and frequently awakened by pain during the night. She frequently wakes up feeling stiff morning. She occasionally wakes up with sore achy muscles. She rarely wakes up with pain in the neck, spine and other joints. The patient goes to bed at 10 pm on both weekdays and weekends. She states that it takes a long time for her to fall asleep. She wakes up 3+ times throughout the night to urinate. It can take a few minutes to a few hours to fall back asleep. The patient wakes up at 7 am on weekdays and at 8 am on the weekends. She typically gets 6 hours of sleep per night. The patient stays in bed for 5 minutes after waking up in the morning. The patient is currently living with her . She does not consume any caffeinated beverages within 2 hours of bedtime. She does not engage in physical activity prior to bedtime.She will read before falling asleep. She denies watching television before falling asleep. She denies taking naps during the afternoon or the evening. She drinks 3 caffeinated beverages per day. She quit smoking 40 years ago. She denies alcohol and recreational drug use. [facility] Past Medical History Medical History Anxiety Diabetes Essential (primary) hypertension Obesity (BMI 30.0-34.9) Pure hypercholesterolemia, unspecified Thumb pain Type 2 diabetes mellitus without complications Family History Family History Father Patient's father is in good health Mother Family history of osteoporosis Depression Family history of cataracts Asthma Family history of chronic obstructive pulmonary disease Sibling Depression Family history of bipolar disorder Family history of diabetes mellitus in first degree relative Other Cerebrovascular accident Diabetes mellitus Family history of alcoholism Family history of arthritis Family history of cardiovascular disease Hypertension Social History Social His
[2022-02-28 17:03] VITALS: BMI 28.7
== END 2022-02-01 13:32 | disposition home or self-care (01) ==
PROVIDERS: PCP Internal Medicine; Visit Provider Internal Medicine
DX: G47.00 Insomnia, unspecified (principal)
CPT/HCPCS: 95800